=== PATIENT | female | born 1995 | race Caucasian/White ===

== ENCOUNTER 2017-02-13 07:32 | Outpatient (CLI) | payer SELFPAY ==
[~2017-02-13] VITALS: Ht 157.5 cm; Wt 77.3 kg
[2017-02-13 07:38] VITALS: BP 106/54
[2017-02-13 08:27] LABS: DAU SCREEN DISCLAIMER
[2017-02-13] MEDS ORDERED: FLU VACC QS2017-18 (36MOS+) UP/PF 0.5 ML IM-VACC ONE (08:30)
[2017-02-13 09:21] LABS: HIV 1&2 ANTIBODY SCREEN Nonreactive (Nonreactive); HIV-1 p24 ANTIGEN Nonreactive (Nonreactive)
== END 2017-02-13 13:21 | disposition home or self-care (01) ==
LOC: LDOP 07:32
PROVIDERS: ATTEND Obstetrics & Gynecology
DX: O32.1XX0 Maternal care for breech presentation, not applicable or unspecified (principal); O26.893 Other specified pregnancy related conditions, third trimester; R10.31 Right lower quadrant pain; Z3A.29 29 weeks gestation of pregnancy
CPT/HCPCS: 36415; 59025; 76805; 80307; 81001; 86592; 86703; 86762; 86803; 86850; 86900; 87086; 87340; 87899; 90686; 99201; G0435; G0463; G0479

== ENCOUNTER 2017-03-18 17:57 | Outpatient (CLI) | payer MEDICAID ==
[2017-03-18] MEDS ORDERED: ONDANSETRON ODT 4 MG ONE (19:15)
[2017-03-18] MEDS ORDERED: ONDANSETRON ODT 4 MG PO ONE (19:30)
[2017-03-18] MEDS ORDERED: PLEASE ENTER HEIGHT AND WEIGHT MC SCH (20:00)
[2017-03-18] MEDS ORDERED: NITROFURANTOIN (MACROBID) 100 MG CAPSULE ONE (20:39)
[2017-03-18] MEDS ORDERED: NITROFURANTOIN (MACROBID) 100 MG CAPSULE PO ONE (21:00)
== END 2017-03-18 20:55 | disposition home or self-care (01) ==
LOC: LDOP 17:57
PROVIDERS: ATTEND Obstetrics & Gynecology
DX: O21.2 Late vomiting of pregnancy (principal); Z3A.33 33 weeks gestation of pregnancy
CPT/HCPCS: 59025; 81001; 87086; 99211; Q0162; G0463

== ENCOUNTER 2018-04-20 03:03 | Emergency (ER) | payer MEDICAID ==
[~2018-04-20] VITALS: Ht 157.5 cm; Wt 97.3 kg
[2018-04-20 03:06] VITALS: BP 109/73
[2018-04-20] MEDS ORDERED: BUPIVACAINE 0.25% ONE (03:23)
[2018-04-20] MEDS ORDERED: LIDOCAINE-MPF 1%, 5ML ONE (03:23)
[2018-04-20] MEDS ORDERED: LIDOCAINE 1%, 10ML INFIL ONE (03:30)
[2018-04-20] MEDS ORDERED: BUPIVACAINE 0.25% INFIL ONE (03:30)
[2018-04-20] MEDS ORDERED: BUPIVACAINE/PF-EPI 0.5% 1:200K INFIL ONE (17:00)
== END 2018-04-20 03:42 | disposition home or self-care (01) ==
LOC: ED 03:12
DX: K08.89 Other specified disorders of teeth and supporting structures (principal)
CPT/HCPCS: 64400; 99284; J3490

== ENCOUNTER 2019-03-22 21:15 | Emergency (ER) | payer MEDICAID ==
[~2019-03-22] VITALS: Ht 157.5 cm; Wt 87.0 kg
[2019-03-22 22:16] LABS: MICROSCOPIC NOT IND
[2019-03-22 22:26] LABS: CULTURE INDICATED? NO
[2019-03-22] MEDS ORDERED: MELA3TAB15 PO (22:37)
[2019-03-22] MEDS ORDERED: FLUT1BLS13 IH (22:37)
[2019-03-22] MEDS ORDERED: LITH600C PO (22:37)
[2019-03-22] MEDS ORDERED: APIX2.5T PO (22:37)
[2019-03-22] MEDS ORDERED: ONDA4TAB7 PO (22:37)
[2019-03-22] MEDS ORDERED: LITH300T30 PO (22:37)
[2019-03-22] MEDS ORDERED: ELET40TA PO (22:37)
[2019-03-22] MEDS ORDERED: DOCU240C53 PO (22:37)
[2019-03-22] MEDS ORDERED: MONT10TA9 PO (22:37)
[2019-03-22] MEDS ORDERED: RANI150T4 PO (22:37)
[2019-03-22] MEDS ORDERED: BUSP15TA PO (22:37)
[2019-03-22] MEDS ORDERED: LINA145C PO (22:37)
[2019-03-22] MEDS ORDERED: CHOL20002 PO (22:37)
[2019-03-22] MEDS ORDERED: LIOT5TAB11 PO (22:37)
[2019-03-22] MEDS ORDERED: PENT100C2 PO (22:37)
[2019-03-22] MEDS ORDERED: ALBU0.63 NEB (22:37)
[2019-03-22] MEDS ORDERED: CETI10TA32 PO (22:37)
[2019-03-22] MEDS ORDERED: VALA10004 PO (22:37)
[2019-03-22] MEDS ORDERED: LEVO100T PO (22:37)
[2019-03-22] MEDS ORDERED: POLY17PO29 PO (22:37)
[2019-03-22] MEDS ORDERED: GABA300C10 PO (22:37)
[2019-03-22] MEDS ORDERED: ESCI20TA PO (22:37)
[2019-03-22] MEDS ORDERED: CYCL-259 PO (22:37)
--- NOTE | 2019-03-22 22:48 | NUR ---
PHLEB AT BS.
[2019-03-22 23:06] LABS: ALBUMIN 2.7 g/dL (3.4-5.0); ANION GAP 8 mmol/L (5-15); CALCIUM 8.2 mg/dL (8.5-10.1); CHLORIDE 109 mmol/L (98-107)
[2019-03-22 23:08] LABS: ALANINE AMINOTRANSFERASE 18 U/L (12-78); ALKALINE PHOSPHATASE 80 U/L (45-117); BILIRUBIN,TOTAL 0.4 mg/dL (0.2-1.0); CREATININE 0.55 mg/dL (0.55-1.02); TOTAL PROTEIN 7.3 g/dL (6.4-8.2)
[2019-03-22 23:28] LABS: BASOPHILS # (AUTO) 0.07 x10^3/uL (0-0.1); BASOPHILS % (AUTO) 1 % (0-1); EOSINOPHILS # (AUTO) 0.11 x10^3/uL (0-0.4); EOSINOPHILS % (AUTO) 1 % (1-7); LYMPHOCYTES # (AUTO) 3.14 x10^3/uL (1-3.4); LYMPHOCYTES % (AUTO) 24 % (22-44); MD SCAN; MEAN CORPUSCULAR HEMOGLOBIN 23.5 pg (27.0-34.8); MEAN CORPUSCULAR HGB CONC 31.4 g/dL (32.4-35.8); MEAN CORPUSCULAR VOLUME 74.7 fL (80-100); MEAN PLATELET VOLUME 8.5 fL (7.4-10.4); MONOCYTES % (AUTO) 2 % (2-9); NEUTROPHILS # (AUTO) 9.74 x10^3/uL (1.8-6.8); NEUTROPHILS % (AUTO) 73 % (42-75); PLATELET COUNT 283 x10^3/uL (130-400); RED BLOOD COUNT 5.07 x10^6/uL (3.82-5.3); RED CELL DISTRIBUTION WIDTH 17.1 % (9.6-15.2)
[2019-03-22 23:57] VITALS: BP 118/69
== END 2019-03-22 23:59 | disposition home or self-care (01) ==
LOC: ED 23:36
DX: O26.891 Other specified pregnancy related conditions, first trimester (principal); R10.84 Generalized abdominal pain; Z3A.01 Less than 8 weeks gestation of pregnancy
CPT/HCPCS: 36415; 76801; 80053; 81003; 83690; 84702; 85025; 99284

== ENCOUNTER 2019-05-17 15:30 | Emergency (ER) | payer MEDICAID ==
[~2019-05-17] VITALS: Ht 157.5 cm; Wt 88.9 kg
[~2019-05-17 15:30] MED LIST: ALBU0.63 NEB; APIX2.5T PO; BUSP15TA PO; CETI10TA32 PO; CHOL20002 PO; CYCL-259 PO; DOCU240C53 PO; ELET40TA PO; ESCI20TA PO; FLUT1BLS13 IH; GABA300C10 PO; LEVO100T PO; LINA145C PO; LIOT5TAB11 PO; LITH300T30 PO; LITH600C PO; MELA3TAB15 PO; MONT10TA9 PO; ONDA4TAB7 PO; PENT100C2 PO; POLY17PO29 PO; RANI150T4 PO; VALA10004 PO
[2019-05-17 15:32] VITALS: BP 136/73
== END 2019-05-17 16:00 | disposition home or self-care (01) ==
LOC: ED 15:47
DX: O99.612 Diseases of the digestive system complicating pregnancy, second trimester (principal); K08.9 Disorder of teeth and supporting structures, unspecified; Z3A.16 16 weeks gestation of pregnancy
CPT/HCPCS: 99282

== ENCOUNTER 2019-09-24 21:21 | Outpatient (CLI) | payer MEDICAID ==
[~2019-09-24] VITALS: Ht 157.5 cm; Wt 95.0 kg
[~2019-09-24 21:21] MED LIST changes: +MONT10TA11 PO; -MONT10TA9 PO
[2019-09-24 21:25] VITALS: BP 116/68
[2019-09-24 21:48] LABS: BASOPHILS % (AUTO) 0 % (0-1); EOSINOPHILS # (AUTO) 0.01 x10^3/uL (0-0.4); EOSINOPHILS % (AUTO) 0 % (1-7); LYMPHOCYTES # (AUTO) 1.35 x10^3/uL (1-3.4); LYMPHOCYTES % (AUTO) 11 % (22-44); MD NO; MEAN CORPUSCULAR HEMOGLOBIN 22.9 pg (27.0-34.8); MEAN CORPUSCULAR HGB CONC 31.8 g/dL (32.4-35.8); MEAN CORPUSCULAR VOLUME 72.2 fL (80-100); MEAN PLATELET VOLUME 8.1 fL (7.4-10.4); MONOCYTES # (AUTO) 0.21 x10^3/uL (0.2-0.8); MONOCYTES % (AUTO) 2 % (2-9); NEUTROPHILS # (AUTO) 10.61 x10^3/uL (1.8-6.8); NEUTROPHILS % (AUTO) 87 % (42-75); PLATELET COUNT 337 x10^3/uL (130-400); RED BLOOD COUNT 5.03 x10^6/uL (3.82-5.3)
[2019-09-24 21:52] LABS: MICROSCOPIC INDICATED
[2019-09-24 21:55] LABS: ALANINE AMINOTRANSFERASE 15 U/L (12-78); ALBUMIN 2.3 g/dL (3.4-5.0); ANION GAP 9 mmol/L (5-15); CALCIUM 8.5 mg/dL (8.5-10.1); CHLORIDE 106 mmol/L (98-107); CREATININE 0.46 mg/dL (0.55-1.02)
[2019-09-24 21:57] LABS: ALKALINE PHOSPHATASE 135 U/L (45-117); TOTAL PROTEIN 7.2 g/dL (6.4-8.2)
[2019-09-24 21:58] LABS: AMPHETAMINE SCREEN, URINE Negative (Negative); BARBITURATE SCREEN, URINE Negative (Negative); BENZODIAZEPINE SCREEN, URINE Negative (Negative); CANNABINOID SCREEN, URINE Negative (Negative); COCAINE SCREEN, URINE Negative (Negative); METHADONE SCREEN, URINE Negative (Negative); OPIATE SCREEN, URINE Negative (Negative)
[2019-09-24] MEDS ORDERED: LACTATED RINGERS 1,000 ML IVBOLUS ONE (22:30)
[2019-09-24] MEDS ORDERED: ONDANSETRON 2MG/ML, 2ML ONE (22:40)
[2019-09-24] MEDS ORDERED: D5%-LACTATED RINGERS 1,000 ML IV SCH (23:00)
[2019-09-24] MEDS ORDERED: ONDANSETRON 2MG/ML, 2ML IVPush PRN (23:00)
== END 2019-09-25 00:37 | disposition home or self-care (01) ==
LOC: LDOP 21:21 → UNDOADMIN 23:00 → LDIP 23:00 → LDOP 09-25 00:37 → UNDODISIN 09-25 00:37
PROVIDERS: ATTEND Obstetrics & Gynecology
DX: O21.2 Late vomiting of pregnancy (principal); O26.893 Other specified pregnancy related conditions, third trimester; R10.9 Unspecified abdominal pain; Z3A.33 33 weeks gestation of pregnancy
CPT/HCPCS: 36415; 59025; 80053; 80307; 81001; 85025; 87086; 96361; 96374; 99211; J2405; J7120; J7121; 96360; G0378; G0463